=== PATIENT | female | born 1980 | race Asian ===

== ENCOUNTER → 2024-12-23 07:03 | Outpatient (REF) | payer OTHER, SELFPAY | LOC: PAVMRI 07:03 | PROVIDERS: ATTENDING PHYSICIAN Psychiatry & Neurology Neurology; FAMILY PHYSICIAN Family Medicine | DX: Z86.73 Personal history of transient ischemic attack (TIA), and cerebral infarction without residual deficits (principal) | CPT/HCPCS: 70544; 70551 ==